=== PATIENT | female | born 2000 | race Two or more races ===

== ENCOUNTER 2022-04-27 10:39 | Day surgery (SDC) | payer OTHER | END 2022-04-27 19:50 | disposition home or self-care (01) | LOC: CIR.AMB 10:39 | PROVIDERS: ATTEND Student in an Organized Health Care Education/Training Program | DX: N83.291 Other ovarian cyst, right side (principal); R10.2 Pelvic and perineal pain; Z88.0 Allergy status to penicillin; Z88.6 Allergy status to analgesic agent; Z20.822 Contact with and (suspected) exposure to COVID-19 ==